=== PATIENT | female | born 1995 | race Hispanic/Latino ===

== ENCOUNTER 2017-11-25 16:01 | Emergency (ER) | payer OTHER ==
[~2017-11-25] VITALS: Ht 154.9 cm; Wt 54.5 kg
[~2017-11-25 16:01] MED LIST: FISH OIL1000 MG; LACRI-LUBE S.O.P. OP; NO MEDS; PRENATA4 PO; ZITHROMAX250 MG PO; ZOFRAN ODT4 MG PO
[2017-11-25 17:07] VITALS: BP 120/80
== END 2017-11-25 17:12 | disposition home or self-care (01) | DRG 951 ==
LOC: ED 16:01
DX: Z20.811 Contact with and (suspected) exposure to meningococcus (principal); Y99.0 Civilian activity done for income or pay

== ENCOUNTER 2018-12-14 18:17 | Emergency (ER) | payer SELFPAY ==
[~2018-12-14] VITALS: Ht 154.9 cm; Wt 80.0 kg
[2018-12-14 19:00] LABS: HEMATOCRIT 35.2 % (37.0-47.0); HEMOGLOBIN 12.8 g/dl (12.0-16.0); IMMATURE GRANULOCYTES 0.3 % (0.0-5.0); MEAN CELL VOLUME 82.6 fL CALC (80.0-100.0); MEAN CORPUSCULAR HGB CONC 36.4 g/L CALC (32.0-36.0); NEUT# 4.15 thou/uL (2.00-7.15); RED BLOOD COUNT 4.26 mill/uL (4.20-5.60); RED CELL DISTRI WIDTH 12.1 % (11.5-15.5)
[2018-12-14 19:08] LABS: ALBUMIN 4.2 g/dL (3.2-5.0); ANION GAP 15 (6-22 (CALC)); BUN 5 mg/dL (7-17); BUN/CREATININE RATIO 14 (12-20 (CALC)); CARBON DIOXIDE 21 mmol/l (22-30); CHLORIDE 104 mmol/l (95-108); CREATININE 0.4 mg/dL (0.5-1.0); GFR > 60 ML/MIN (>=60 (CALC)); GFR FOR AFR.AMER. > 60 ML/MIN (>=60 (CALC)); POTASSIUM 3.5 mmol/l (3.5-5.1); SGOT/AST 27 u/l (14-36); SODIUM 136 mmol/l (137-146); TOTAL PROTEIN 7.9 g/dL (6.3-8.2)
[2018-12-14 19:09] LABS: ALKALINE PHOSPHATASE 70 u/l (38-126); BILIRUBIN, TOTAL 0.2 mg/dL (0.0-1.4)
[2018-12-14 19:23] LABS: URINE BILIRUBIN - DIPSTICK NEGATIVE (NEGATIVE); URINE BLOOD DIPSTICK NEGATIVE (NEGATIVE); URINE COLOR YELLOW; URINE GLUCOSE - DIPSTICK NEGATIVE (NEGATIVE); URINE KETONE NEGATIVE (NEGATIVE); URINE LEUK ESTERASE NEGATIVE (NEGATIVE); URINE NITRITE - DIPSTICK NEGATIVE (Negative); URINE PROTEIN - DIPSTICK NEGATIVE (NEG-TRACE); URINE SPECIFIC GRAVITY 1.015; URINE UROBILINOGEN - DIPSTICK 0.2 E.U./dL (0.2)
[2018-12-14 19:49] LABS: BETA-HCG, QUANT(RESULT NUMBER) 39736 mIU/mL
[2018-12-14 20:36] VITALS: BP 126/61
== END 2018-12-14 20:30 | disposition home or self-care (01) | DRG 833 ==
LOC: ED 18:17
DX: O26.892 Other specified pregnancy related conditions, second trimester (principal); M54.5 Low back pain; R10.2 Pelvic and perineal pain

== ENCOUNTER 2022-02-07 11:05 | Emergency (ER) | payer MEDICAID ==
[~2022-02-07] VITALS: Ht 154.9 cm; Wt 65.9 kg
[2022-02-07 11:20] VITALS: BP 118/81
[2022-02-07 11:30] VITALS: BP 122/80
[2022-02-07 11:45] VITALS: BP 127/80
[2022-02-07 12:01] VITALS: BP 95/64
[2022-02-07 12:15] VITALS: BP 118/79
[2022-02-07] MEDS ORDERED: CORTISPORIN OTI10 M2 AU (12:15)
[2022-02-07] MEDS ORDERED: TAM75CAP PO (12:15)
[2022-02-07] MEDS ORDERED: BENZONATATE200 MG PO (12:15)
[2022-02-07 12:25] VITALS: BP 118/79
== END 2022-02-07 12:25 | disposition home or self-care (01) ==
LOC: ED 11:05
DX: J10.1 Influenza due to other identified influenza virus with other respiratory manifestations (principal); Z20.822 Contact with and (suspected) exposure to COVID-19

== ENCOUNTER 2022-08-26 19:03 | Emergency (ER) | payer OTHER ==
[~2022-08-26 19:03] MED LIST changes: +BENZONATATE200 MG PO; +CORTISPORIN OTI10 M2 AU; +TAM75CAP PO
[2022-08-26 20:05] VITALS: BP 139/89
== END 2022-08-26 20:05 | disposition home or self-care (01) ==
LOC: ED 19:03
DX: Z34.83 Encounter for supervision of other normal pregnancy, third trimester (principal); Z3A.40 40 weeks gestation of pregnancy

== ENCOUNTER 2022-12-19 20:47 | Emergency (ER) | payer OTHER ==
[~2022-12-19] VITALS: Ht 154.9 cm; Wt 68.0 kg
[2022-12-19 21:09] VITALS: BP 135/79
[2022-12-19 21:16] VITALS: BP 127/75
[2022-12-19 21:31] VITALS: BP 112/76
[2022-12-19 21:59] LABS: ALBUMIN 4.5 g/dL (3.2-5.0); ALKALINE PHOSPHATASE 74 u/l (38-126); ANION GAP 17 (6-22 (CALC)); BILIRUBIN, TOTAL 0.4 mg/dL (0.02-1.3); BUN 16 mg/dL (7-17); BUN/CREATININE RATIO 23 (12-20 (CALC)); CARBON DIOXIDE 24 mmol/l (22-30); CHLORIDE 104 mmol/l (95-108); CREATININE 0.7 mg/dL (0.5-1.0); GFR FOR AFR.AMER. > 60 ML/MIN (>=60 (CALC)); GFR OTHER RACES > 60 ML/MIN (>=60 (CALC)); LIPASE 103 u/l (23-300); POTASSIUM 4.1 mmol/l (3.5-5.1); SGOT/AST 32 u/l (14-36); SODIUM 141 mmol/l (137-146)
[2022-12-19 22:08] LABS: BASO% 0.4 % (0-3); EOS% 2.4 % (0-8); HEMATOCRIT 38.1 % (37.0-47.0); HEMOGLOBIN 12.7 g/dl (12.0-16.0); IMMATURE GRANULOCYTES 0.2 % (0.0-5.0); LYMPH% 52.2 % (15-41); MEAN CELL VOLUME 84.3 fL CALC (80.0-100.0); MEAN CORPUSCULAR HGB 28.1 pG CALC (26.0-32.0); MEAN CORPUSCULAR HGB CONC 33.3 g/dL CAL (32.0-36.0); MONO% 6.1 % (2-13); NEUT# 2.09 thou/uL (2.00-7.15); NEUT% 38.7 % (42-76); RED BLOOD COUNT 4.52 mill/uL (4.20-5.60); RED CELL DISTRI WIDTH 12.9 % (11.5-15.5)
[2022-12-19 22:15] VITALS: BP 115/74
[2022-12-20 00:08] LABS: URINE BILIRUBIN - DIPSTICK Negative (NEGATIVE); URINE BLOOD DIPSTICK Negative (NEGATIVE); URINE GLUCOSE - DIPSTICK Negative (NEGATIVE); URINE KETONE Negative (NEGATIVE); URINE LEUK ESTERASE Negative (NEGATIVE); URINE NITRITE - DIPSTICK Negative (Negative); URINE PH 7.5 (4.5-8.0); URINE PROTEIN - DIPSTICK Negative (NEG-TRACE); URINE SPECIFIC GRAVITY 1.015; URINE UROBILINOGEN - DIPSTICK 0.2 E.U./dL (0.2)
[2022-12-20 00:09] LABS: URINE COLOR Yellow
[2022-12-20 00:35] VITALS: BP 115/74
== END 2022-12-20 00:35 | disposition home or self-care (01) ==
LOC: ED 20:47
PROVIDERS: Family Medicine
DX: R10.31 Right lower quadrant pain (principal); R10.33 Periumbilical pain
CPT/HCPCS: Q9967